=== PATIENT | male | born 1975 | race Caucasian/White ===

== ENCOUNTER 2017-02-07 07:09 | Inpatient (IN) | payer OTHER ==
[~2017-02-07] VITALS: Ht 185.4 cm; Wt 122.5 kg
[2017-02-07] MEDS ORDERED: SODIUM CHLORIDE 0.9% 1,000 ML IV ONE (07:34)
[2017-02-07] MEDS ORDERED: MORPHINE SULFATE 4 MG/ML, 1ML ONE (07:44)
[2017-02-07] MEDS ORDERED: ASPIRIN 81 MG TABLET CHEW ONE (07:45)
[2017-02-07] MEDS ORDERED: LORazepam 2 MG/ML, 1ML ONE (07:45)
[2017-02-07] MEDS ORDERED: NITROGLYCERIN SINGLE TAB 0.4 MG SL ONE (07:45)
[2017-02-07 07:46] LABS: HEMATOCRIT 45.3 % (39.2-51.8)
[2017-02-07 08:00] LABS: ASPARTATE AMINO TRANSFERASE 17 U/L (15-37); BLOOD UREA NITROGEN 18 mg/dL (7-18)
[2017-02-07] MEDS ORDERED: SODIUM CHLORIDE 0.9% 1,000ML IVBOLUS ONE (08:00)
[2017-02-07] MEDS ORDERED: SODIUM CHLORIDE FLUSH 10ML SYR IVF ONE (08:00)
[2017-02-07] MEDS ORDERED: NITROGLYCERIN SINGLE TAB 0.4 MG SL PRN (08:00)
[2017-02-07] MEDS ORDERED: LORazepam 2 MG/ML, 1ML IVPush ONE (08:00)
[2017-02-07] MEDS ORDERED: ASPIRIN 81 MG TABLET CHEW PO ONE (08:00)
[2017-02-07] MEDS ORDERED: MORPHINE SULFATE 4 MG/ML, 1ML IVPush PRN (08:00)
[2017-02-07 08:04] LABS: IS PT STATUS REG ER OR PRE ER? YES
[2017-02-07] MEDS ORDERED: ALBUTEROL/IPRATROPIUM 2.5MG/0.5MG, 3 ML ONE (08:26)
[2017-02-07] MEDS ORDERED: ALBUTEROL/IPRATROPIUM 2.5MG/0.5MG, 3 ML NPPB ONE (08:30)
[2017-02-07] MEDS ORDERED: OMNIPAQUE 350 MG/ML, 100ML BOTTLE ONE (08:51)
[2017-02-07] MEDS ORDERED: FUROSEMIDE 20 MG/2 ML ONE (09:25)
[2017-02-07] MEDS ORDERED: FUROSEMIDE 20 MG/2 ML IV ONE (09:30)
[2017-02-07] MEDS ORDERED: ONDANSETRON ODT 4 MG PO PRN (10:00)
[2017-02-07] MEDS ORDERED: HYDROcodone/APAP 5/325 TABLET PO PRN (10:00)
[2017-02-07] MEDS ORDERED: morphine SULFATE 10 MG/ML, 1ML IVPush PRN (10:00)
[2017-02-07] MEDS ORDERED: ONDANSETRON 2MG/ML, 2ML IVPush PRN (10:00)
[2017-02-07] MEDS ORDERED: ACETAMINOPHEN 325 MG TABLET PO PRN (10:00)
[2017-02-07] MEDS ORDERED: NITROGLYCERIN 0.4 MG BOTTLE (25 TABS) SL PRN (10:30)
[2017-02-07] MEDS ORDERED: NITROGLYCERIN 0.4 MG/SPRAY SL PRN (10:30)
[2017-02-07 10:44] VITALS: BP 131/92
[2017-02-07 10:48] LABS: DAU SCREEN DISCLAIMER
[2017-02-07] MEDS: ENOXAPARIN 40 MG/0.4 ML SQ SCH (11:14)
[2017-02-07 12:33] LABS: IS PT STATUS REG ER OR PRE ER? NO
[2017-02-07 15:45] VITALS: BP 118/90
[2017-02-07] MEDS: FUROSEMIDE 40 MG/4 ML IV SCH (16:33)
[2017-02-07 18:23] LABS: IS PT STATUS REG ER OR PRE ER? NO
[2017-02-07 19:12] VITALS: BP 135/89
[2017-02-07] MEDS: SPIRONOLACTONE 25 MG TABLET PO SCH (20:31)
[2017-02-07] MEDS: POTASSIUM CHLORIDE 20 MEQ TAB.ER.PRT PO SCH (20:31)
[2017-02-07] MEDS: LISINOPRIL 5 MG TABLET PO SCH (20:31)
[2017-02-08 02:09] VITALS: BP 129/90
[2017-02-08] MEDS: ASPIRIN 325 MG TABLET PO SCH (05:14)
[2017-02-08 05:44] LABS: HEMATOCRIT 46.5 % (39.2-51.8); HEMOGLOBIN 15.1 g/dL (13.7-18.0); WHITE BLOOD COUNT 7.7 x10^3/uL (3.4-10)
[2017-02-08 06:06] LABS: ASPARTATE AMINO TRANSFERASE 19 U/L (15-37); BLOOD UREA NITROGEN 15 mg/dL (7-18)
[2017-02-08 07:15] VITALS: BP 133/92
[2017-02-08] MEDS: ENOXAPARIN 40 MG/0.4 ML SQ SCH (08:34)
[2017-02-08] MEDS: POTASSIUM CHLORIDE 20 MEQ TAB.ER.PRT PO SCH ×2 (08:34→16:44)
[2017-02-08] MEDS: LISINOPRIL 5 MG TABLET PO SCH ×2 (08:34→20:54)
[2017-02-08] MEDS: SPIRONOLACTONE 25 MG TABLET PO SCH (08:34)
[2017-02-08] MEDS: FUROSEMIDE 40 MG/4 ML IV SCH ×2 (08:35→16:45)
[2017-02-08] MEDS: CARVEDILOL 3.125 MG TABLET PO SCH ×2 (10:41→16:44)
[2017-02-08 13:39] VITALS: BP 123/89
[2017-02-08 20:05] VITALS: BP 135/98
[2017-02-09 04:39] VITALS: BP 121/62
[2017-02-09] MEDS: ASPIRIN 325 MG TABLET PO SCH (05:45)
[2017-02-09] MEDS: CARVEDILOL 3.125 MG TABLET PO SCH (05:45)
[2017-02-09 07:45] VITALS: BP 114/82
[2017-02-09] MEDS: FUROSEMIDE 40 MG/4 ML IV SCH (08:18)
[2017-02-09] MEDS: LISINOPRIL 5 MG TABLET PO SCH ×2 (08:19→21:23)
[2017-02-09] MEDS: POTASSIUM CHLORIDE 20 MEQ TAB.ER.PRT PO SCH ×2 (08:19→18:08)
[2017-02-09] MEDS: SPIRONOLACTONE 25 MG TABLET PO SCH (08:19)
[2017-02-09] MEDS ORDERED: REGADENOSON 0.4 MG/5 ML SYRINGE ONE (10:43)
[2017-02-09] MEDS: ENOXAPARIN 40 MG/0.4 ML SQ SCH (12:59)
[2017-02-09 13:32] VITALS: BP 91/60
[2017-02-09] MEDS: CARVEDILOL 6.25 MG TABLET PO SCH (18:09)
[2017-02-09] MEDS: FUROSEMIDE 40 MG TABLET PO SCH (18:09)
[2017-02-09 18:11] VITALS: BP 116/73
[2017-02-09 18:26] VITALS: BP 120/83
[2017-02-09 21:22] VITALS: BP 108/75
[2017-02-10 02:28] VITALS: BP 106/72
[2017-02-10 05:24] LABS: BLOOD UREA NITROGEN 30 mg/dL (7-18)
[2017-02-10] MEDS ORDERED: ASPIRIN 81 MG TABLET EC PO SCH (06:00)
[2017-02-10 07:27] VITALS: BP 96/64
[2017-02-10] MEDS: SPIRONOLACTONE 25 MG TABLET PO SCH (09:32)
[2017-02-10] MEDS: POTASSIUM CHLORIDE 20 MEQ TAB.ER.PRT PO SCH (09:32)
[2017-02-10] MEDS: FUROSEMIDE 40 MG TABLET PO SCH (09:32)
[2017-02-10] MEDS: CARVEDILOL 6.25 MG TABLET PO SCH (09:33)
[2017-02-10] MEDS: ENOXAPARIN 40 MG/0.4 ML SQ SCH (12:58)
[2017-02-10] MEDS ORDERED: ASPI-621 PO (14:07)
[2017-02-10] MEDS ORDERED: ATOR20TA9 PO (14:07)
[2017-02-10] MEDS ORDERED: CARV6.2512 PO (14:07)
[2017-02-10] MEDS ORDERED: LISI5TAB7 PO (14:07)
[2017-02-10] MEDS ORDERED: FURO40TA6 PO (14:07)
[2017-02-10] MEDS ORDERED: SPIR25TA PO (14:07)
[2017-02-10] MEDS ORDERED: POTA10TA5 PO (14:07)
[2017-02-10] MEDS ORDERED: PNEUMOCOCCAL 23 VACCINE IM-VACC ONE (15:00)
[2017-02-10] MEDS ORDERED: FUROSEMIDE 40 MG TABLET PO SCH (17:00)
[2017-02-10] MEDS ORDERED: POTASSIUM CHLORIDE 10 MEQ TABLET.ER PO SCH (17:00)
[2017-02-11] MEDS ORDERED: LISINOPRIL 5 MG TABLET PO SCH (09:00)
== END 2017-02-10 15:29 | disposition home or self-care (01) | DRG 292 ==
LOC: ED 08:10 → EDIP 09:31 → 5SO 10:39
PROVIDERS: ADMIT Family Medicine; ATTEND Family Medicine
DX: I50.41 Acute combined systolic (congestive) and diastolic (congestive) heart failure (principal); I42.9 Cardiomyopathy, unspecified; E44.1 Mild protein-calorie malnutrition; I27.2 Other secondary pulmonary hypertension; G47.33 Obstructive sleep apnea (adult) (pediatric); E66.9 Obesity, unspecified; I34.0 Nonrheumatic mitral (valve) insufficiency; F15.10 Other stimulant abuse, uncomplicated; I11.0 Hypertensive heart disease with heart failure; Z79.82 Long term (current) use of aspirin; Z80.0 Family history of malignant neoplasm of digestive organs; Z87.891 Personal history of nicotine dependence; Z68.36 Body mass index [BMI] 36.0-36.9, adult; Z91.19 Patient's noncompliance with other medical treatment and regimen; R06.00 Dyspnea, unspecified; R06.89 Other abnormalities of breathing
CPT/HCPCS: 36415; 71010; 71275; 78452; 80048; 80053; 80061; 80307; 83605; 83690; 83735; 83880; 84443; 84484; 85025; 85379; 87040; 90732; 93005; 93017; 94640; 96361; 96372; 96374; 96375; C8929; J1650; J1940; J2785; J7620; Q9967; A9502; C9898; J2060; J7030

== ENCOUNTER → 2017-03-08 | Outpatient (CLI) | payer OTHER ==
[~2017-03-08] MED LIST: ASPI-621 PO; ATOR20TA9 PO; CARV6.2512 PO; FURO40TA6 PO; LISI5TAB7 PO; POTA10TA5 PO; SPIR25TA PO
== END | disposition home or self-care (01) ==
LOC: CVU 14:53
PROVIDERS: ATTEND Internal Medicine Cardiovascular Disease
DX: I08.1 Rheumatic disorders of both mitral and tricuspid valves (principal); I50.21 Acute systolic (congestive) heart failure; I42.9 Cardiomyopathy, unspecified
CPT/HCPCS: 93306

== ENCOUNTER 2021-03-09 21:43 | Emergency (ER) | payer OTHER ==
[~2021-03-09] VITALS: Ht 185.4 cm; Wt 94.1 kg
[~2021-03-09 21:43] MED LIST changes: -ASPI-621 PO; +ASPI81TA45 PO; +ATOR20TA37 PO; -ATOR20TA9 PO
[2021-03-09 22:30] LABS: BASOPHILS % (AUTO) 1 % (0-1); EOSINOPHILS % (AUTO) 0 % (1-7); LYMPHOCYTES % (AUTO) 30 % (22-44); MEAN CORPUSCULAR HGB CONC 35.2 g/dL (33.2-36.2); MEAN PLATELET VOLUME 7.2 fL (7.4-10.4); MONOCYTES % (AUTO) 12 % (2-9); NEUTROPHILS % (AUTO) 56 % (42-75); PLATELET COUNT 147 x10^3/uL (130-400); RED BLOOD COUNT 4.83 x10^6/uL (4.38-5.82); RED CELL DISTRIBUTION WIDTH 13.6 % (9.4-14.8)
[2021-03-09 22:42] LABS: ALBUMIN 3.3 g/dL (3.4-5.0); ANION GAP 7 mmol/L (5-15); CALCIUM 8.2 mg/dL (8.5-10.1); CHLORIDE 98 mmol/L (98-107)
[2021-03-09 22:45] LABS: ALANINE AMINOTRANSFERASE 28 U/L (12-78); ALKALINE PHOSPHATASE 52 U/L (45-117); BILIRUBIN,TOTAL 0.7 mg/dL (0.2-1.0); CREATININE 1.15 mg/dL (0.7-1.3); TOTAL PROTEIN 7.3 g/dL (6.4-8.2)
--- NOTE | 2021-03-09 23:04 | NUR ---
pt to room from lobby
[2021-03-09 23:31] VITALS: BP 92/60
== END 2021-03-10 00:07 | disposition home or self-care (01) ==
LOC: ED 22:00
DX: U07.1 COVID-19 (principal); J02.9 Acute pharyngitis, unspecified; R94.31 Abnormal electrocardiogram [ECG] [EKG]; I11.0 Hypertensive heart disease with heart failure; I50.9 Heart failure, unspecified
CPT/HCPCS: 36415; 71045; 80053; 85025; 93005; 99285